=== PATIENT | female | born 1975 | race Two or more races ===

== ENCOUNTER 2023-10-30 09:01 | Emergency (ER) | payer MEDICAID, OTHER ==
[~2023-10-30] VITALS: Ht 165.1 cm; Wt 68.8 kg
[2023-10-30 09:19] VITALS: BP 146/82; TEMP 98.3
[2023-10-30 10:59] VITALS: PULSE 80; RESP 18; O2SAT 100
[2023-10-30] MEDS ORDERED: IBUPROFEN 600 MG TAB PO ONE (11:00)
[2023-10-30] MEDS ORDERED: LIDOCAINE 1% HCL (LOCAL ANESTH.) INJ 20ML MDV ID ONE (11:00)
[2023-10-30] MEDS ORDERED: MUPI2CRE17 EX (13:36)
[2023-10-30] MEDS ORDERED: AUG875T PO (13:36)
[2023-10-30] MEDS ORDERED: NEOMYCIN-BACITRACIN-POLYM UNITDOSE PKG TOP OINT TOP ONE (13:45)
== END 2023-10-30 13:52 | disposition home or self-care (01) ==
LOC: ER 09:01
DX: L03.011 Cellulitis of right finger (principal); Z79.2 Long term (current) use of antibiotics; Z79.899 Other long term (current) drug therapy; Z88.0 Allergy status to penicillin
CPT/HCPCS: 10060; 87205; 99283; J2001; 87077; 87186

== ENCOUNTER 2025-01-01 09:33 | Inpatient (IN) | payer MEDICAID ==
[~2025-01-01] VITALS: Ht 165.1 cm; Wt 69.4 kg
[2025-01-01] VITALS (12 sets, daily range): BP systolic 130–149; BP diastolic 80–105; PULSE 89–110; RESP 11–19; TEMP 98.6–98.9; O2SAT 92–99
[2025-01-01] MEDS: ACCU-CHEK COMFORT CURVE STRIP VI SCH
[2025-01-01] MEDS: InsuLIN REG 1unit/0.01ml Soln (100units/ml) SC SCH
[~2025-01-01 09:33] MED LIST: AUG875T PO; MUPI2CRE17 EX
[2025-01-01 10:49] LABS: Basophils # (auto) 0.1 10 ^3/uL (0-0.2); Basophils % (auto) 0.7 % (0.0-2.0); Eosinophils # (auto) 0.3 10 ^3/uL (0-0.8); Hemoglobin 8.9 g/dL (12.2-16.2); Lymphocytes # (auto) 1.2 10 ^3/uL (0.4-5.4); Mean Corpuscular Hemoglobin 17.1 pg (28.0-32.0); Monocytes # (auto) 0.4 10 ^3/uL (0-1.3)
[2025-01-01 10:54] LABS: Eosinophils % (auto) 3.1 % (0.0-7.0); Hematocrit 30.8 % (36.0-46.0); Lymphocytes % (auto) 13.6 % (10.0-50.0); Mean Corpuscular Volume 58.9 fL (80.0-100.0); Monocytes % (auto) 4.2 % (0.0-12.0); Neutrophils % (auto) 78.4 % (37.0-80.0); Platelet Count (auto) 318 10^3/uL (140-450); Red Blood Cells 5.22 10^6/uL (4.0-5.20)
[2025-01-01 11:15] LABS: Anion Gap 10 (5-15); Carbon Dioxide 22 mmol/L (20-31); Chloride 102 mmol/L (98-107); Potassium 3.7 mmol/L (3.5-5.1)
[2025-01-01 11:16] LABS: Calcium 9.2 mg/dL (8.7-10.4)
[2025-01-01 11:17] LABS: INR 0.92 (0.9-1.15); Prothrombin Time 9.8 sec (9.3-11.8)
[2025-01-01 11:21] LABS: BUN/Creatinine Ratio 8.1 (10.0-20.0)
--- NOTE | 2025-01-01 11:22 | DVH ---
Right lower extremity venous duplex Clinical History: rle calf pain and swelling Comparison: None Findings: Duplex Doppler evaluation of the deep venous system of the right lower extremity from the common femo ral vein to the popliteal vein including color Doppler and spectral/pulsed waveform analysis was perf ormed. The common femoral vein demonstrates appropriate compressibility and waveform variability. There is compressibility/patency of the great saphenous vein at the proximal thigh. Loss of compressibility involving the proximal femoral vein to the popliteal vein which appears compl etely occluded The deep femoral vein demonstrates appropriate compressibility and waveform variability. There is normal compressibility at the tibioperoneal trunk. Impression: Right lower extremity DVT If clinical concern/symptoms persist or worsen, short-interval follow-up study is suggested.
[2025-01-01 11:28] LABS: Blood Urea Nitrogen 6 mg/dL (9-23); Glucose 341 mg/dL (74-106); Sodium 134 mmol/L (136-145)
[2025-01-01] MEDS: ACETAMINOPHEN 325 MG TAB PO ONE (11:59)
--- NOTE | 2025-01-01 12:00 | ED.PDOC ---
History of Present Illness HPI Comments 49F with a history of myasthenia gravis presents with 2 days of right lower extremity swelling, pain, tenderness. She is on oral contraception. She does not take any blood thinners, smoking, or family history of blood thinners. Patient denies chest pain and shortness of breath. Chief Complaint: Lower Extremity Time Seen by MD: 10:04 Primary Care Provider: JENNA Allergies: Coded Allergies: Penicillins (Verified Allergy, Unknown, 10/30/23) Home Meds Active Scripts Amoxicillin & Pot Clavulanate (AUGMENTIN TABLET) 875 Mg Tb, 875 MG PO BID for 10 Days, #20 TAB 0 Refills Prov:SDI OCONNELL PROFESSIONAL [employer] FISHER 10/30/23 Mupirocin Calcium (Topical) (MUPIROCIN) 2 % Cre, 2 % EX DAILY for 7 Days, #5 GRAMS 0 Refills Prov:SID OCONNELL PROFESSIONAL [employer] FISHER 10/30/23 Information Source: Patient Mode of Arrival: Ambulatory Past Medical History Past Medical History (Other): Myasthenia gravis Family History Family History: Reviewed,noncontributory to illness Social History Smoker: Non-Smoker Alcohol: Denies ETOH Use Drugs: Denies Drug Use All Other Systems: Reviewed and Negative Physical Exam General Appearance: Normal HEENT: Normal ENT Inspection Neck: Normal Inspection Respiratory: No Respiratory Distress Cardiovascular: Tachycardia Breast Exam: Normal Gastrointestinal: Non Tender Genitalia: Deferred Pelvic: Deferred Rectal: Deferred Extremities: Other (Right calf is tender and twice the size of the left calf.) Neurologic: No Motor Deficits Cerebellar Function: NOT DONE Reflexes: NOT DONE Skin: Normal Color Lymphatic: NOT DONE Was a procedure done? Was a procedure done?: No Differential Dx Considerations may include: DVT, cellulitis, muscle strain X-Ray, Labs, Meds, VS Vital Signs Date Time Temp Pulse Resp B/P (MAP) Pulse Ox O2 Delivery O2 Flow Rate FiO2 01/01/25 11:10 117 14 98 Room Air 01/01/25 11:05 98.9 117 14 129/86 (100) 98 98.9 01/01/25 10:18 98.3 124 16 131/104 (113) 100 Lab Test 01/01/25 10:25 Range/Units White Blood Count 9.0 4.4-10.8 10^3/uL Red Blood Count 5.22 H 4.0-5.20 10^6/uL Hemoglobin 8.9 L 12.2-16.2 g/dL Hematocrit 30.8 L 36.0-46.0 % Mean Corpuscular Volume 58.9 L 80.0-100.0 fL Mean Corpuscular Hemoglobin 17.1 L 28.0-32.0 pg Mean Corpuscular Hemoglobin Concent 29.0 L 32.0-36.0 g/dL Red Cell Distribution Width 19.0 H 11.8-14.3 % Platelet Count 318 140-450 10^3/uL Mean Platelet Volume 8.3 6.9-10.8 fL Neutrophils (%) (Auto) 78.4 37.0-80.0 % Lymphocytes (%) (Auto) 13.6 10.0-50.0 % Monocytes (%) (Auto) 4.2 0.0-12.0 % Eosinophils (%) (Auto) 3.1 0.0-7.0 % Basophils (%) (Auto) 0.7 0.0-2.0 % Neutrophils # (Auto) 7.0 1.6-8.6 10 ^3/uL Lymphocytes # (Auto) 1.2 0.4-5.4 10 ^3/uL Monocytes # (Auto) 0.4 0-1.3 10 ^3/uL Eosinophils # (Auto) 0.3 0-0.8 10 ^3/uL Basophils # (Auto) 0.1 0-0.2 10 ^3/uL Nucleated Red Blood Cells 0.0 % Platelet Estimate Pending Prothrombin Time 9.8 9.3-11.8 sec Prothrombin Time INR 0.92 0.9-1.15 D-Dimer, Quantitative 1.47 H 0.0-0.49 mg/L FEU Sodium Level 134 L 136-145 mmol/L Potassium Level 3.7 3.5-5.1 mmol/L Chloride Level 102 98-107 mmol/L Carbon Dioxide Level 22 20-31 mmol/L Anion Gap 10 5-15 Blood Urea Nitrogen 6 L 9-23 mg/dL Creatinine 0.74 0.550-1.02 mg/dL Glomerular Filtration Rate Calc 100 >90 mL/min BUN/Creatinine Ratio 8.1 L 10.0-20.0 Serum Glucose 341 H 74-106 mg/dL Calcium Level 9.2 8.7-10.4 mg/dL Time of 1ST Reevaluation: 11:59 Reevaluation 1ST: Unchanged Patient Education/Counseling: Diagnosis, Treatment Family Education/Counseling: No Family Present Departure 1 Departure Time of Disposition: 11:59 (Patient has a DVT concerning for proximal femoral DVT. We will start patient on heparin and admit patient for INari consultation.) Impression: Primary Impression: Right leg DVT Qualified Codes: I82.411 - Acute embolism and thrombosis of right femoral vein Additional Impression: Right calf pain Disposition: ADMITTED INPATIENT Admit to: Med Surg Condition: Serious Critical Care Note Critical Care Time?: No Stability Stability form required: No Heart Score Heart Score: Heart Score Response (Comments) Value History N/A 0 EKG N/A 0 Age N/A 0 Risk Factors N/A 0 Troponin N/A 0 Total 0 EMMANUEL LI MD Jan 01, 2025 12:00
[2025-01-01] MEDS ORDERED: ONDANSETRON HCL 4 MG/2 ML VIAL IV PRN (12:45)
[2025-01-01] MEDS ORDERED: NITROGLYCERIN 0.4 MG SL TAB SL PRN (12:45)
[2025-01-01] MEDS ORDERED: MORPHINE SULFATE INJ 2 MG/ml SYRG IV PRN (12:45)
[2025-01-01 12:56] LABS: Hypochromia Marked
[2025-01-01 12:57] LABS: Platelet Estimate Adequate
[2025-01-01] MEDS ORDERED: DEXTROSE (50%) 50ML SYRG IV PRN (13:00)
--- NOTE | 2025-01-01 13:02 | DVHHP2 ---
History of Present Illness Reason for Visit: Right leg pain and swelling History of Present Illness Maryana Cordova is a 49-year old female with no significant past medical history who came to the hospital for right leg swelling and pain. Patient states the swelling and pain began on Monday. It continued to worsen prompting her to come to the ER. Ultrasound of RLE showed a DVT. IR was consulted and will be taking patient for procedure. Patient does take oral contraceptives. Denies being sedentary, any recent long travel, or sick interaction. Blood sugar was also found to be elevated about 300. Patient denies being diabetic, and states she does routine visits and lab work with her primary care provider, with the last visit about 2 months ago. Will order A1c, and start accu checks. 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) Past Surgical History: None Family History: None Smoke: No ALCOHOL: none Drugs: None Lives: Alone (with 6-year-old son) Domestic Violence: Neg Review of Systems Constitutional: No: Fever, Chills, Sweats, Weakness, Malaise, Other Eyes: No: Pain, Vision change, Conjunctivae inflammation, Eyelid inflammation, Other, Redness ENT: No: Ear pain, Ear discharge, Nose pain, Nose discharge, Nose congestion, Mouth pain, Mouth swelling, Throat pain, Throat swelling, Other Respiratory: No: Cough, Dry, Shortness of breath, SOB with excertion, Wheezing, Hemoptysis, Pleuritic Pain, Sputum, Wheezing, Other Cardiovascular: No: Chest Pain, Palpitations, Orthopnea, Paroxysmal Noc. Dyspnea, Edema, Lt Headedness, Other Gastrointestinal: No: Nausea, Vomiting, Abdominal Pain, Diarrhea, Constipation, Melena, Hematochezia, Other Genitourinary: No Dysuria, No Frequency, No Incontinence, No Hematuria, No Retention, No Other Musculoskeletal: leg pain (right leg pain and swelling); No: other, neck pain, shoulder pain, arm pain, back pain, hand pain, foot pain Skin: No: Rash, Lesions, Jaundice, Bruising, Other Neurological: No: Weakness, Numbness, Incoordination, Change in speech, Confusion, Seizures, Other Allergies: Coded Allergies: Penicillins (Verified Allergy, Unknown, 10/30/23) Medications Current Medications Medications Dose Ordered Sig/Khloe Route Start Time Stop Time Status Last Admin Dose Admin Heparin Sodium/ Dextrose 250 ml @ 11.682 mls/ hr [id number] IV 01/01/25 12:00 UNV Exam Vital Signs Vital Signs Date Time Temp Pulse Resp B/P (MAP) Pulse Ox O2 Delivery O2 Flow Rate FiO2 01/01/25 12:39 110 16 97 Room Air* 0 21 01/01/25 12:37 99.0 143/102 (116) 99.0 General Appearance: Alert, Oriented X3, Cooperative, moderate distress HEENT: Atraumatic, PERRLA Respiratory: Clear to auscultation, Normal air movement Cardiovascular: Regular rate, Normal S1, Normal S2, No murmurs Abdominal: Normal bowel sounds, Soft, No tenderness Extremities: No clubbing, Other (right LE swelling and pain, +1 pedal pulse) Skin: No rashes, No breakdown, No significant lesion Neuro: Normal gait, Normal speech, Strength at 5/5 X4 ext, Normal tone Psych/Mental Status: Mental status NL, Mood NL Labs/Xrays Labs Test 01/01/25 10:25 Range/Units White Blood Count 9.0 4.4-10.8 10^3/uL Red Blood Count 5.22 H 4.0-5.20 10^6/uL Hemoglobin 8.9 L 12.2-16.2 g/dL Hematocrit 30.8 L 36.0-46.0 % Mean Corpuscular Volume 58.9 L 80.0-100.0 fL Mean Corpuscular Hemoglobin 17.1 L 28.0-32.0 pg Mean Corpuscular Hemoglobin Concent 29.0 L 32.0-36.0 g/dL Red Cell Distribution Width 19.0 H 11.8-14.3 % Platelet Count 318 140-450 10^3/uL Mean Platelet Volume 8.3 6.9-10.8 fL Neutrophils (%) (Auto) 78.4 37.0-80.0 % Lymphocytes (%) (Auto) 13.6 10.0-50.0 % Monocytes (%) (Auto) 4.2 0.0-12.0 % Eosinophils (%) (Auto) 3.1 0.0-7.0 % Basophils (%) (Auto) 0.7 0.0-2.0 % Neutrophils # (Auto) 7.0 1.6-8.6 10 ^3/uL Lymphocytes # (Auto) 1.2 0.4-5.4 10 ^3/uL Monocytes # (Auto) 0.4 0-1.3 10 ^3/uL Eosinophils # (Auto) 0.3 0-0.8 10 ^3/uL Basophils # (Auto) 0.1 0-0.2 10 ^3/uL Nucleated Red Blood Cells 0.0 % Prothrombin Time 9.8 9.3-11.8 sec Prothrombin Time INR 0.92 0.9-1.15 D-Dimer, Quantitative 1.47 H 0.0-0.49 mg/L FEU Sodium Level 134 L 136-145 mmol/L Potassium Level 3.7 3.5-5.1 mmol/L Chloride Level 102 98-107 mmol/L Carbon Dioxide Level 22 20-31 mmol/L Anion Gap 10 5-15 Blood Urea Nitrogen 6 L 9-23 mg/dL Creatinine 0.74 0.550-1.02 mg/dL Glomerular Filtration Rate Calc 100 >90 mL/min BUN/Creatinine Ratio 8.1 L 10.0-20.0 Serum Glucose 341 H 74-106 mg/dL Calcium Level 9.2 8.7-10.4 mg/dL Right lower extremity venous duplex Findings: Duplex Doppler evaluation of the deep venous system of the right lower extremity from the common femoral vein to the popliteal vein including color Doppler and spectral/pulsed waveform analysis was performed. The common femoral vein demonstrates appropriate compressibility and waveform variability. There is compressibility/patency of the great saphenous vein at the proximal thigh. Loss of compressibility involving the proximal femoral vein to the popliteal vein which appears completely occluded The deep femoral vein demonstrates appropriate compressibility and waveform variability. There is normal compressibility at the tibioperoneal trunk. Impression: Right lower extremity DVT If clinical concern/symptoms persist or worsen, short-interval follow-up study is suggested. Assessment/Plan Assessment/Plan Assessment: Right leg DVT, Hyperglycemia, Elevated D-dimer, Plan: Admit to Tele, IR consult, Heparin drip, A1c, Accu checks Q AC&HS with sliding scale, Plan discussed with: Patient Date of Service: Jan 01, 2025 Billing Provider: YAEL TORRES Common Visit Codes: [id number] INP/OBS CARE (HIGH) YAEL TORRES Jan 01, 2025 13:02
[2025-01-01] MEDS: SODIUM CHLORIDE 0.9% 1,000 ML IV SCH (13:06)
[2025-01-01] MEDS: fentaNYL CITRATE 100 MCG/2 ML VL ONE ×2 (13:35→15:16)
[2025-01-01] MEDS: LIDOCAINE 2%HCL (LOCAL ANESTH.) INJ 20ML MDV ONE (13:36)
[2025-01-01] MEDS: MIDAZOLAM HCL 2MG/2ML 2ml VIAL (1mg/ml) ONE ×2 (13:36→15:15)
[2025-01-01] MEDS: HEPARIN SODIUM (PORCINE) 5000 UNITS/ML 1ML VIAL ONE (14:25)
[2025-01-01 14:26] LABS: INR 0.91 (0.9-1.15); Partial Thromboplastin Time 25.2 SEC (24.5-34.5); Prothrombin Time 9.7 sec (9.3-11.8)
--- NOTE | 2025-01-01 15:36 | ECG ---
[facility] Test Date: 2025-01-01 Test Time: 10:26:29 Pat Name: MELCHOR DELGADO Department: ER Room: 0212T Gender: F Acquisition Manager: LYLE : 1975 Requested By: EMMANUEL LI Order Number: [id number] Reading MD: Efrem Joshua Measurements Intervals [place] Rate: 116 P: 70 OK: 139 QRS: -25 QRSD: 87 T: 49 QT: 347 QTc: 483 Interpretive Statements Sinus tachycardia Borderline left axis deviation Low voltage, precordial leads Abnormal R-wave progression, early transition Baseline wander in lead(s) I,II,III,aVR,aVL,V3 Electronically Signed On 01-02-2025 9:48:04 PST by Efrem Joshua Please click the below link to view image of tracing.
[2025-01-01] MEDS: HEPARIN DRIP/D5W 100UNITS/ML 250 ML IV SCH (15:47)
[2025-01-01] MEDS: HEPARIN SODIUM (PORCINE) 5000 UNITS/ML 1ML VIAL IV ONE (15:50)
[2025-01-01] MEDS: HEPARIN DRIP/D5W 100UNITS/ML 250 ML IV ONE (15:59)
--- NOTE | 2025-01-01 19:52 | DVH ---
JIMBO PERCU.VENOUS THROMBECTOM HISTORY: DVT THROMBECTOMY with right femoral, popliteal and iliac vein deep venous thrombus. Tense ri ght lower extremity with pain, swelling, difficulty ambulating. PROCEDURE: Informed consent was obtained. The patient was placed on the fluoroscopic table in prone p osition. The right popliteal fossa was prepped with chlorhexidine which was allowed to dry and draped in the usual sterile fashion. Time out was performed. Following administration of 1% local lidocaine , the right lesser saphenous vein was accessed with a micropuncture set under ultrasound guidance, an d an image documenting patency sent to PACS. Contrast injection through the micro sheath confirms felipe ous location. A glide advantage wire was then advanced through the thrombus into the IVC. A 6 Fr vasc ular sheath was then placed. A glide catheter placed over wire into IVC. IVC venogram performed throu gh the catheter. A small amount of blood was aspirated for ACT and 5000 units of heparin was given. T hen an Amplatz wire was placed in the IVC. A 16 Fr Inari sheath was then placed into the popliteal ve in. A Clot Triever mechanical thrombectomy device was used in 3 passes to remove thrombus from the ri ght iliac, femoral, popliteal veins. A completion venogram was performed. The wire, sheath was gavin angela and the venotomy closed with a suture, flow stasis device and manual compression. No immediate c omplication was identified. DAP FLUOROSCOPY TIME: 12 minutes. CONTRAST USED: 50 mL . SEDATION: Dr. Maximo Otero was personally responsible for the administration of moderate sedation during the procedure performed, including the use of an independent trained observer who had no other duties during the procedure. The drugs utilized were IV fentanyl and versed (see nursing log for details). The total time of supervision by the attending physician was approximately 70 minutes. FINDINGS: Multiple intraluminal filling defects in the right popliteal, femoral veins and right iliac vein, which was removed with mechanical thrombectomy using the Inari Clot Treiver device. Completion venogram shows significantly improved patency of the right lower extremity veins. IMPRESSION: Multiple intraluminal filling defects in the right popliteal, femoral veins and right iliac vein, whi ch was removed with mechanical thrombectomy using the Inari Clot Treiver device. Completion venogram shows significantly improved patency of the right lower extremity veins. PLAN: Resume heparin gtt and transition to oral anticoagulation per primary. Right leg straight for 2 hours. Will remove flow stasis device in 24-48 hours.
[2025-01-01] MEDS: MORPHINE SULFATE INJ 2 MG/ml SYRG IV PRN (20:21)
[2025-01-01] MEDS: ACETAMINOPHEN 325 MG TAB PO PRN (22:26)
[2025-01-01 22:30] LABS: INR 0.95 (0.9-1.15); Partial Thromboplastin Time 46.3 SEC (24.5-34.5); Prothrombin Time 10.1 sec (9.3-11.8)
[2025-01-02] VITALS (8 sets, daily range): BP systolic 120–138; BP diastolic 76–84; PULSE 103–124; RESP 16–20; TEMP 97.8–99.8; O2SAT 96–99
[2025-01-02] MEDS: HEPARIN DRIP/D5W 100UNITS/ML 250 ML IV SCH ×3 (00:15→21:30)
[2025-01-02 07:44] LABS: Basophils # (auto) 0.1 10 ^3/uL (0-0.2); Eosinophils # (auto) 0.3 10 ^3/uL (0-0.8); Lymphocytes # (auto) 0.9 10 ^3/uL (0.4-5.4); Monocytes # (auto) 0.4 10 ^3/uL (0-1.3); Neutrophils # (auto) 8.2 10 ^3/uL (1.6-8.6); White Blood Cell 9.9 10^3/uL (4.4-10.8)
[2025-01-02 07:46] LABS: Basophils % (auto) 0.5 % (0.0-2.0); Eosinophils % (auto) 3.4 % (0.0-7.0); Hematocrit 28.9 % (36.0-46.0); Hemoglobin 8.5 g/dL (12.2-16.2); Mean Corpuscular Hemoglobin 17.3 pg (28.0-32.0); Mean Corpuscular Hgb Conc. 29.2 g/dL (32.0-36.0); Mean Corpuscular Volume 59.3 fL (80.0-100.0); Monocytes % (auto) 4.5 % (0.0-12.0); Neutrophils % (auto) 82.6 % (37.0-80.0); Nucleated Red Blood Cells % 0.1 %; Platelet Count (auto) 285 10^3/uL (140-450); Red Blood Cells 4.87 10^6/uL (4.0-5.20); Red Cell Distribution Width 19.7 % (11.8-14.3)
[2025-01-02 08:00] LABS: INR 0.95 (0.9-1.15); Prothrombin Time 10.1 sec (9.3-11.8)
[2025-01-02 08:01] LABS: Albumin 4.2 g/dL (3.2-4.8); Anion Gap 10 (5-15); BUN/Creatinine Ratio 11.8 (10.0-20.0); Bilirubin, Total 0.4 mg/dL (0.2-1.0); Calcium 8.9 mg/dL (8.7-10.4); Carbon Dioxide 22 mmol/L (20-31); Chloride 104 mmol/L (98-107); Total Protein 6.5 g/dL (5.7-8.2)
[2025-01-02 08:02] LABS: Alanine Aminotransferase < 9 U/L (7-40); Alkaline Phosphatase 117 U/L (46-116); Aspartate Aminotransferase 11 U/L (13-40); Blood Urea Nitrogen 6 mg/dL (9-23); Glucose 165 mg/dL (74-106); Potassium 3.4 mmol/L (3.5-5.1); Sodium 136 mmol/L (136-145)
[2025-01-02] MEDS: HYDROcodone-ACET 5/325MG TAB PO PRN (08:26)
--- NOTE | 2025-01-02 14:06 | DVHPN2 ---
Reviewed: Care Plan, H&P, Labs, Medications, Previous Orders, Radiology Changes from previous H/P or p: No Changes Eyes: No Pain, No Vision change, No Conjunctivae inflammation, No Eyelid inflammation, No Other, No Redness ENT: No Ear pain, No Ear discharge, No Nose pain, No Nose discharge, No Nose congestion, No Mouth pain, No Mouth swelling, No Throat pain, No Throat swelling, No Other Cardiovascular: No Chest Pain, No Palpitations, No Orthopnea, No Paroxysmal Noc. Dyspnea, No Edema, No Lt Headedness, No Other Respiratory: No Cough, No Dry, No Shortness of breath, No SOB with excertion, No Wheezing, No Hemoptysis, No Pleuritic Pain, No Sputum, No Other Gastrointestinal: No Nausea, No Vomiting, No Abdominal Pain, No Diarrhea, No Constipation, No Melena, No Hematochezia, No Other Genitourinary: No Dysuria, No Frequency, No Incontinence, No Hematuria, No Retention, No Other Musculoskeletal: No other, No neck pain, No shoulder pain, No arm pain, No back pain, No hand pain; leg pain (right leg pain and swelling); No foot pain Skin: No Rash, No Lesions, No Jaundice, No Bruising, No Other Objective Vitals Vital Signs Date Time Temp Pulse Resp B/P (MAP) Pulse Ox O2 Delivery O2 Flow Rate FiO2 01/02/25 12:35 109 18 135/79 01/02/25 09:00 99.7 97 99.7 01/02/25 08:00 Room Air* 0 21 Intake/Output Intake and Output 01/02/25 07:00 Intake Total 934.6 ml Output Total 350 ml Balance 584.6 ml Intake Oral 800 ml IV Total 134.6 ml Output Urine Total 350 ml Medications Current Medications Medications Dose Ordered Sig/Khloe Route Start Time Stop Time Status Last Admin Dose Admin Sodium Chloride 1,000 ml @ 60 mls/hr [id number] IV 01/01/25 12:45 01/02/25 06:15 60 MLS/HR Acetaminophen/ Hydrocodone Bitart 1 tab Q4HP PRN PO 01/01/25 12:45 01/02/25 08:26 1 TAB Ondansetron HCl 4 mg Q4HP PRN IV 01/01/25 12:45 Docusate Sodium 100 mg BIDPRN PRN PO 01/01/25 12:45 Acetaminophen 650 mg Q6HP PRN PO 01/01/25 12:45 01/01/25 22:26 650 MG Morphine Sulfate 2 mg Q4HPRN PRN IV 01/01/25 12:45 01/02/25 12:35 2 MG Nitroglycerin 0.4 mg Q5MINP PRN SL 01/01/25 12:45 Morphine Sulfate 2 mg Q30M PRN IV 01/01/25 12:45 Diagnostic Test (Pha) 1 strip Q6HR 01/01/25 18:00 01/02/25 12:11 1 STRIP Insulin Human Regular Q6HR SC 01/01/25 18:00 01/02/25 12:11 4 UNITS Dextrose 50 ml UD PRN IV 01/01/25 13:00 Heparin Sodium/ Dextrose 250 ml @ 16 mls/hr [id number] IV 01/02/25 08:45 01/02/25 08:44 16 MLS/HR Laboratory Results Laboratory Tests 01/02/25 07:22 Chemistry Test 01/02/25 07:22 Albumin 4.2 g/dL (3.2-4.8) Calcium Level 8.9 mg/dL (8.7-10.4) Total Protein 6.5 g/dL (5.7-8.2) Coagulation Test 01/01/25 21:54 01/02/25 07:22 Prothrombin Time 10.1 sec (9.3-11.8) 10.1 sec (9.3-11.8) Prothrombin Time INR 0.95 (0.9-1.15) 0.95 (0.9-1.15) Activated Partial Thromboplast Time 46.3 SEC (24.5-34.5) H 47.0 SEC (24.5-34.5) H LFT Test 01/02/25 07:22 Alanine Aminotransferase (ALT) < 9 U/L (7-40) Alkaline Phosphatase 117 U/L (46-116) H Aspartate Amino Transferase (AST) 11 U/L (13-40) L Total Bilirubin 0.4 mg/dL (0.2-1.0) HgA1c, TSH Test 01/02/25 07:22 Hemoglobin A1c 10.6 % A1C (<5.7) H Labs and/or images reviewed: Labs reviewed by me, Image(s) reviewed by me Assessment/Plan Assessment/Plan Extensive DVT right lower extremity status post thrombectomy by radiologist Dr. Otero, continue heparin drip Right lower leg pain Uncontrolled diabetes A1c 10.6: Insulin sliding scale: New onset diabetes teaching Plan discussed with: Patient Date of Service: Jan 02, 2025 Billing Provider: PRASAD WAY MD Common Visit Codes: [id number] INP/OBS CARE(HIGH) PRASAD WAY MD Jan 02, 2025 14:06
[2025-01-02 15:07] LABS: INR 0.97 (0.9-1.15); Prothrombin Time 10.3 sec (9.3-11.8)
[2025-01-02 15:14] LABS: Partial Thromboplastin Time 74.9 SEC (24.5-34.5)
[2025-01-02 20:58] LABS: INR 0.99 (0.9-1.15); Prothrombin Time 10.5 sec (9.3-11.8)
[2025-01-03] VITALS (8 sets, daily range): BP systolic 116–126; BP diastolic 69–87; PULSE 102–114; RESP 12–22; TEMP 97.7–98.6; O2SAT 96–99
[2025-01-03 06:59] LABS: Anion Gap 11 (5-15); Calcium 9.3 mg/dL (8.7-10.4); Carbon Dioxide 23 mmol/L (20-31); Chloride 100 mmol/L (98-107)
[2025-01-03 07:02] LABS: INR 0.96 (0.9-1.15); Partial Thromboplastin Time 47.7 SEC (24.5-34.5); Potassium 3.2 mmol/L (3.5-5.1); Prothrombin Time 10.2 sec (9.3-11.8); Sodium 134 mmol/L (136-145)
[2025-01-03 07:05] LABS: BUN/Creatinine Ratio 10.9 (10.0-20.0)
[2025-01-03 07:06] LABS: Blood Urea Nitrogen 7 mg/dL (9-23); Glucose 199 mg/dL (74-106)
[2025-01-03] MEDS: HEPARIN DRIP/D5W 100UNITS/ML 250 ML IV SCH (08:20)
--- NOTE | 2025-01-03 08:39 | DVHPN2 ---
Reviewed: Care Plan, H&P, Labs, Medications, Previous Orders, Radiology Changes from previous H/P or p: No Changes Eyes: No Pain, No Vision change, No Conjunctivae inflammation, No Eyelid inflammation, No Other, No Redness ENT: No Ear pain, No Ear discharge, No Nose pain, No Nose discharge, No Nose congestion, No Mouth pain, No Mouth swelling, No Throat pain, No Throat swelling, No Other Cardiovascular: No Chest Pain, No Palpitations, No Orthopnea, No Paroxysmal Noc. Dyspnea, No Edema, No Lt Headedness, No Other Respiratory: No Cough, No Dry, No Shortness of breath, No SOB with excertion, No Wheezing, No Hemoptysis, No Pleuritic Pain, No Sputum, No Other Gastrointestinal: No Nausea, No Vomiting, No Abdominal Pain, No Diarrhea, No Constipation, No Melena, No Hematochezia, No Other Genitourinary: No Dysuria, No Frequency, No Incontinence, No Hematuria, No Retention, No Other Musculoskeletal: No other, No neck pain, No shoulder pain, No arm pain, No back pain, No hand pain; leg pain (right leg pain and swelling); No foot pain Skin: No Rash, No Lesions, No Jaundice, No Bruising, No Other Objective Vitals Vital Signs Date Time Temp Pulse Resp B/P (MAP) Pulse Ox O2 Delivery O2 Flow Rate FiO2 01/03/25 05:53 100 18 117/73 01/03/25 05:00 98.3 98 98.3 01/02/25 20:00 Room Air* 0 21 Intake/Output Intake and Output 01/03/25 07:00 Intake Total 1900 ml Balance 1900 ml Intake Oral 1900 ml # Voids 12 Medications Current Medications Medications Dose Ordered Sig/Khloe Route Start Time Stop Time Status Last Admin Dose Admin Sodium Chloride 1,000 ml @ 60 mls/hr [id number] IV 01/01/25 12:45 01/02/25 23:59 60 MLS/HR Acetaminophen/ Hydrocodone Bitart 1 tab Q4HP PRN PO 01/01/25 12:45 01/02/25 20:17 1 TAB Ondansetron HCl 4 mg Q4HP PRN IV 01/01/25 12:45 Docusate Sodium 100 mg BIDPRN PRN PO 01/01/25 12:45 Acetaminophen 650 mg Q6HP PRN PO 01/01/25 12:45 01/01/25 22:26 650 MG Morphine Sulfate 2 mg Q4HPRN PRN IV 01/01/25 12:45 01/03/25 05:23 2 MG Nitroglycerin 0.4 mg Q5MINP PRN SL 01/01/25 12:45 Morphine Sulfate 2 mg Q30M PRN IV 01/01/25 12:45 Diagnostic Test (Pha) 1 strip Q6HR 01/01/25 18:00 01/03/25 06:00 1 STRIP Insulin Human Regular Q6HR SC 01/01/25 18:00 01/03/25 07:06 4 UNITS Dextrose 50 ml UD PRN IV 01/01/25 13:00 Heparin Sodium/ Dextrose 250 ml @ 15 mls/hr [id number] IV 01/03/25 08:30 01/03/25 08:20 15 MLS/HR Laboratory Results Laboratory Tests 01/02/25 07:22 01/03/25 05:18 Chemistry Test 01/03/25 05:18 Calcium Level 9.3 mg/dL (8.7-10.4) Coagulation Test 01/02/25 14:34 01/02/25 20:15 01/03/25 05:18 Prothrombin Time 10.3 sec (9.3-11.8) 10.5 sec (9.3-11.8) 10.2 sec (9.3-11.8) Prothrombin Time INR 0.97 (0.9-1.15) 0.99 (0.9-1.15) 0.96 (0.9-1.15) Activated Partial Thromboplast Time 74.9 SEC (24.5-34.5) *H 93.0 SEC (24.5-34.5) *H 47.7 SEC (24.5-34.5) H Labs and/or images reviewed: Labs reviewed by me, Image(s) reviewed by me Assessment/Plan Assessment/Plan Extensive DVT right lower extremity status post thrombectomy by radiologist Dr. Otero, continue heparin drip Right lower leg pain Uncontrolled diabetes A1c 10.6: Insulin sliding scale: New onset diabetes teaching Plan discussed with: Patient My Orders Orders - PRASAD WAY MD Procedure Category Date Status Time * Cardiology Consult CONS 2/6/25 Transmitted 14:08 Date of Service: Jan 03, 2025 Billing Provider: PRASAD WAY MD Common Visit Codes: [id number] INP/OBS CARE(HIGH) PRASAD WAY MD Jan 03, 2025 08:39
--- NOTE | 2025-01-03 10:12 | DVH ---
LEFT LOWER EXTREMITY VENOUS DOPPLER CLINICAL HISTORY: R/O DVT TECHNIQUE: Lower extremity venous Doppler study was performed. COMPARISON: US RT LOWER DVT on DOS: 01/01/25 FINDINGS: The left common femoral, superficial femoral, popliteal, posterior tibial veins and trifurcation appe ar patent with normal augmentation, compressibility and color-flow. . IMPRESSION: 1. No sonographic evidence of DVT in the left leg. HS:Y
[2025-01-03 16:26] LABS: INR 0.97 (0.9-1.15); Prothrombin Time 10.3 sec (9.3-11.8)
[2025-01-03 16:35] LABS: Partial Thromboplastin Time 75.5 SEC (24.5-34.5)
[2025-01-03] MEDS: DOCUSATE SOD 100 MG CAP PO PRN (21:10)
[2025-01-03 23:09] LABS: Prothrombin Time 10.3 sec (9.3-11.8)
[2025-01-03 23:10] LABS: INR 0.97 (0.9-1.15); Partial Thromboplastin Time 68.9 SEC (24.5-34.5)
[2025-01-04] VITALS (11 sets, daily range): BP systolic 95–132; BP diastolic 56–84; PULSE 98–127; RESP 14–20; TEMP 97.5–98.9; O2SAT 96–99
[2025-01-04 03:48] LABS: INR 0.97 (0.9-1.15); Prothrombin Time 10.3 sec (9.3-11.8)
[2025-01-04 03:53] LABS: Partial Thromboplastin Time 83.8 SEC (24.5-34.5)
[2025-01-04] MEDS: HEPARIN DRIP/D5W 100UNITS/ML 250 ML IV SCH (04:15)
--- NOTE | 2025-01-04 08:50 | DVHPN2 ---
Reviewed: Care Plan, H&P, Labs, Medications, Previous Orders, Radiology Changes from previous H/P or p: No Changes Eyes: No Pain, No Vision change, No Conjunctivae inflammation, No Eyelid inflammation, No Other, No Redness ENT: No Ear pain, No Ear discharge, No Nose pain, No Nose discharge, No Nose congestion, No Mouth pain, No Mouth swelling, No Throat pain, No Throat swelling, No Other Cardiovascular: No Chest Pain, No Palpitations, No Orthopnea, No Paroxysmal Noc. Dyspnea, No Edema, No Lt Headedness, No Other Respiratory: No Cough, No Dry, No Shortness of breath, No SOB with excertion, No Wheezing, No Hemoptysis, No Pleuritic Pain, No Sputum, No Other Gastrointestinal: No Nausea, No Vomiting, No Abdominal Pain, No Diarrhea, No Constipation, No Melena, No Hematochezia, No Other Genitourinary: No Dysuria, No Frequency, No Incontinence, No Hematuria, No Retention, No Other Musculoskeletal: No other, No neck pain, No shoulder pain, No arm pain, No back pain, No hand pain; leg pain (right leg pain and swelling); No foot pain Skin: No Rash, No Lesions, No Jaundice, No Bruising, No Other Objective Vitals Vital Signs Date Time Temp Pulse Resp B/P (MAP) Pulse Ox O2 Delivery O2 Flow Rate FiO2 01/04/25 05:00 97.7 98 20 107/75 (86) 98 97.7 01/03/25 20:00 Room Air* 0 21 Intake/Output Intake and Output 01/04/25 07:00 Intake Total 1490 ml Output Total 200 ml Balance 1290 ml Intake Oral 1240 ml IV Total 250 ml Output Urine Total 200 ml # Voids 7 Medications Current Medications Medications Dose Ordered Sig/Khloe Route Start Time Stop Time Status Last Admin Dose Admin Sodium Chloride 1,000 ml @ 60 mls/hr [id number] IV 01/01/25 12:45 01/04/25 06:52 60 MLS/HR Acetaminophen/ Hydrocodone Bitart 1 tab Q4HP PRN PO 01/01/25 12:45 01/03/25 20:56 1 TAB Ondansetron HCl 4 mg Q4HP PRN IV 01/01/25 12:45 Docusate Sodium 100 mg BIDPRN PRN PO 01/01/25 12:45 01/03/25 21:10 100 MG Acetaminophen 650 mg Q6HP PRN PO 01/01/25 12:45 01/01/25 22:26 650 MG Morphine Sulfate 2 mg Q4HPRN PRN IV 01/01/25 12:45 01/03/25 05:23 2 MG Nitroglycerin 0.4 mg Q5MINP PRN SL 01/01/25 12:45 Morphine Sulfate 2 mg Q30M PRN IV 01/01/25 12:45 Diagnostic Test (Pha) 1 strip Q6HR 01/01/25 18:00 01/04/25 06:00 1 STRIP Insulin Human Regular Q6HR SC 01/01/25 18:00 01/04/25 06:52 3 UNITS Dextrose 50 ml UD PRN IV 01/01/25 13:00 Heparin Sodium/ Dextrose 250 ml @ 13 mls/hr [id number] IV 01/04/25 04:15 Laboratory Results Laboratory Tests 01/02/25 07:22 01/03/25 05:18 Coagulation Test 01/03/25 15:08 01/03/25 21:17 01/04/25 03:02 Prothrombin Time 10.3 sec (9.3-11.8) 10.3 sec (9.3-11.8) 10.3 sec (9.3-11.8) Prothrombin Time INR 0.97 (0.9-1.15) 0.97 (0.9-1.15) 0.97 (0.9-1.15) Activated Partial Thromboplast Time 75.5 SEC (24.5-34.5) *H 68.9 SEC (24.5-34.5) H 83.8 SEC (24.5-34.5) *H Labs and/or images reviewed: Labs reviewed by me, Image(s) reviewed by me Assessment/Plan Assessment/Plan Extensive DVT right lower extremity status post thrombectomy by radiologist Dr. Otero, continue heparin drip Right lower leg pain Uncontrolled diabetes A1c 10.6: Insulin sliding scale: New onset diabetes teaching Patient is still complaining of pain in the right lower extremity; we will continue heparin drip DVT ruled out in the left lower extremity Plan discussed with: Patient My Orders Orders - PRASAD WAY MD Procedure Category Date Status Time Lt Lower Dvt US 01/03/25 Resulted 09:21 Date of Service: Jan 04, 2025 Billing Provider: PRASAD WAY MD Common Visit Codes: [id number] INP/OBS CARE(HIGH) PRASAD WAY MD Jan 04, 2025 08:50
[2025-01-04 11:05] LABS: Basophils # (auto) 0.1 10 ^3/uL (0-0.2); Basophils % (auto) 0.7 % (0.0-2.0); Eosinophils # (auto) 0.3 10 ^3/uL (0-0.8); Eosinophils % (auto) 4.1 % (0.0-7.0); Hematocrit 23.5 % (36.0-46.0); Lymphocytes # (auto) 1.2 10 ^3/uL (0.4-5.4); Lymphocytes % (auto) 15.7 % (10.0-50.0); Mean Corpuscular Hemoglobin 17.3 pg (28.0-32.0); Mean Corpuscular Hgb Conc. 29.2 g/dL (32.0-36.0); Mean Corpuscular Volume 59.1 fL (80.0-100.0); Monocytes # (auto) 0.4 10 ^3/uL (0-1.3); Monocytes % (auto) 4.9 % (0.0-12.0); Neutrophils # (auto) 5.8 10 ^3/uL (1.6-8.6); Neutrophils % (auto) 74.6 % (37.0-80.0); Platelet Count (auto) 298 10^3/uL (140-450); Red Blood Cells 3.97 10^6/uL (4.0-5.20); Red Cell Distribution Width 19.4 % (11.8-14.3); White Blood Cell 7.8 10^3/uL (4.4-10.8)
[2025-01-04 11:11] LABS: Hemoglobin 6.9 g/dL (12.2-16.2)
[2025-01-04 11:20] LABS: INR 0.95 (0.9-1.15); Partial Thromboplastin Time 59.4 SEC (24.5-34.5); Prothrombin Time 10.1 sec (9.3-11.8)
--- NOTE | 2025-01-04 13:17 | DVH ---
EXAM: US Pelvis Transabdominal, Complete CLINICAL INDICATION: Menorrhagia TECHNIQUE: Real-time complete transabdominal pelvic ultrasound with image documentation. COMPARISON: None FINDINGS: UTERUS/CERVIX: Portable uterine fibroid measuring up to 1.8 by 2.1 x 1.9 cm. The uterus measures 1 2.2 x 6.8 x 8.5 cm. The endometrial stripe measures 0.56 cm in thickness. RIGHT OVARY: Unremarkable. No mass. Normal blood flow. LEFT OVARY: Unremarkable. No mass. Normal blood flow. FREE FLUID: No free fluid. BLADDER: Unremarkable as visualized. Wall is normal thickness for degree of distention. OTHER FINDINGS: . . . . .. IMPRESSION: Portable uterine fibroid measuring up to 1.8 by 2.1 x 1.9 cm.
[2025-01-04] MEDS: ACCU-CHEK COMFORT CURVE STRIP VI SCH (17:02)
[2025-01-04] MEDS: InsuLIN REG 1unit/0.01ml Soln (100units/ml) SC SCH (17:06)
[2025-01-04 23:03] LABS: INR 0.94 (0.9-1.15); Partial Thromboplastin Time 54.7 SEC (24.5-34.5)
[2025-01-05] VITALS (8 sets, daily range): BP systolic 101–141; BP diastolic 57–84; PULSE 84–104; RESP 14–19; TEMP 97.9–98.4; O2SAT 96–98
[2025-01-05 06:24] LABS: INR 0.95 (0.9-1.15); Partial Thromboplastin Time 66.2 SEC (24.5-34.5); Prothrombin Time 10.1 sec (9.3-11.8)
--- NOTE | 2025-01-05 09:56 | DVHPN2 ---
Reviewed: Care Plan, H&P, Labs, Medications, Previous Orders, Radiology Changes from previous H/P or p: No Changes Eyes: No Pain, No Vision change, No Conjunctivae inflammation, No Eyelid inflammation, No Other, No Redness ENT: No Ear pain, No Ear discharge, No Nose pain, No Nose discharge, No Nose congestion, No Mouth pain, No Mouth swelling, No Throat pain, No Throat swelling, No Other Cardiovascular: No Chest Pain, No Palpitations, No Orthopnea, No Paroxysmal Noc. Dyspnea, No Edema, No Lt Headedness, No Other Respiratory: No Cough, No Dry, No Shortness of breath, No SOB with excertion, No Wheezing, No Hemoptysis, No Pleuritic Pain, No Sputum, No Other Gastrointestinal: No Nausea, No Vomiting, No Abdominal Pain, No Diarrhea, No Constipation, No Melena, No Hematochezia, No Other Genitourinary: No Dysuria, No Frequency, No Incontinence, No Hematuria, No Retention, No Other Musculoskeletal: No other, No neck pain, No shoulder pain, No arm pain, No back pain, No hand pain; leg pain (right leg pain and swelling); No foot pain Skin: No Rash, No Lesions, No Jaundice, No Bruising, No Other Objective Vitals Vital Signs Date Time Temp Pulse Resp B/P (MAP) Pulse Ox O2 Delivery O2 Flow Rate FiO2 01/05/25 09:00 98.0 90 16 101/57 (72) 98 98.0 01/04/25 20:00 Room Air* 0 21 Intake/Output Intake and Output 01/05/25 07:00 Intake Total 1941 ml Balance 1941 ml Intake Oral 1550 ml IV Total 91 ml Blood Product 300 ml # Voids 7 # Bowel Movements 3 Medications Current Medications Medications Dose Ordered Sig/Khloe Route Start Time Stop Time Status Last Admin Dose Admin Sodium Chloride 1,000 ml @ 60 mls/hr [id number] IV 01/01/25 12:45 01/04/25 06:52 60 MLS/HR Acetaminophen/ Hydrocodone Bitart 1 tab Q4HP PRN PO 01/01/25 12:45 01/05/25 06:22 1 TAB Ondansetron HCl 4 mg Q4HP PRN IV 01/01/25 12:45 Docusate Sodium 100 mg BIDPRN PRN PO 01/01/25 12:45 2/25 21:10 100 MG Acetaminophen 650 mg Q6HP PRN PO 01/01/25 12:45 01/01/25 22:26 650 MG Morphine Sulfate 2 mg Q4HPRN PRN IV 01/01/25 12:45 01/03/25 05:23 2 MG Nitroglycerin 0.4 mg Q5MINP PRN SL 01/01/25 12:45 Morphine Sulfate 2 mg Q30M PRN IV 01/01/25 12:45 Dextrose 50 ml UD PRN IV 01/01/25 13:00 Heparin Sodium/ Dextrose 250 ml @ 13 mls/hr [id number] IV 01/04/25 04:15 01/04/25 23:29 13 MLS/HR Diagnostic Test (Pha) 1 strip ACHS 01/04/25 17:00 01/05/25 06:28 1 STRIP Insulin Human Regular ACHS SC 01/04/25 17:00 01/05/25 06:27 4 UNITS Laboratory Results Laboratory Tests 01/03/25 05:18 01/04/25 10:56 Coagulation Test 01/04/25 10:56 01/04/25 22:00 01/05/25 05:19 Prothrombin Time 10.1 sec (9.3-11.8) 10.0 sec (9.3-11.8) 10.1 sec (9.3-11.8) Prothrombin Time INR 0.95 (0.9-1.15) 0.94 (0.9-1.15) 0.95 (0.9-1.15) Activated Partial Thromboplast Time 59.4 SEC (24.5-34.5) H 54.7 SEC (24.5-34.5) H 66.2 SEC (24.5-34.5) H Labs and/or images reviewed: Labs reviewed by me, Image(s) reviewed by me Assessment/Plan Assessment/Plan Extensive DVT right lower extremity status post thrombectomy by radiologist Dr. Otero, continue heparin drip Right lower leg pain Uncontrolled diabetes A1c 10.6: Insulin sliding scale: New onset diabetes teaching Patient is still complaining of pain in the right lower extremity; we will continue heparin drip DVT ruled out in the left lower extremity Radiology Dr. Otero spoke to me and advised the patient should walk to the restroom Left calf tenderness and pain: CT left tib-fib Plan discussed with: Patient My Orders Orders - PRASAD WAY MD Procedure Category Date Status Time Pelvic US 01/04/25 Resulted 11:43 Obtain Consent For: ORDERS 01/04/25 Transmitted 11:56 Pulse Ox Cont Per Day RT 01/04/25 Logged 11:56 Vital Signs ELE 01/04/25 In Process 11:56 Obtain Consent For ELE 01/04/25 In Process Anesthesia 11:56 Glucose Blood PHA 01/04/25 In Process (Accu-Chek Comfort 17:00 Insulin R (Human) PHA 01/04/25 In Process (Insulin R) 17:00 Pt Request For Service PT 01/05/25 Verified 09:52 Date of Service: Jan 05, 2025 Billing Provider: PRASAD WAY MD Common Visit Codes: [id number] INP/OBS CARE(HIGH) PRASAD WAY MD Jan 05, 2025 09:56
[2025-01-05 11:29] LABS: INR 0.97 (0.9-1.15); Prothrombin Time 10.3 sec (9.3-11.8)
[2025-01-05 11:34] LABS: Partial Thromboplastin Time 75.4 SEC (24.5-34.5)
--- NOTE | 2025-01-05 12:29 | DVH ---
CLINICAL INDICATION: 49 years old, Female; Pain and swelling left calf muscle. TECHNIQUE: Noncontrast CT of the left tibia/ fibula was performed. Sagittal and coronal reformatted i mages are provided. COMPARISON: None CT Dose: CTDI volume is 7.75 mGy. Dose-length product is 402.4 mGy*cm FINDINGS: No fracture or dislocation. No periosteal reaction or cortical destruction. Joint spaces are maintain ed. Soft tissue swelling in the anterior medial knee and anterior tibial subcutaneous soft tissues. The fat planes between the calf muscles are maintained. No fluid collection. IMPRESSION: 1. No fracture or dislocation. No cortical destruction. 2. Soft tissue swelling in the subcutaneous soft tissues. No findings to suggest intramuscular edema. All CT scans at this medical facility are performed using dose modulation techniques as appropriate t o a performed exam including the following: Automated exposure control was utilized; adjustment of th e MA and/or KV according to patient size; and use of iterative reconstruction technique.
[2025-01-05 17:59] LABS: INR 0.92 (0.9-1.15); Partial Thromboplastin Time 47.5 SEC (24.5-34.5); Prothrombin Time 9.8 sec (9.3-11.8)
[2025-01-05] MEDS: HEPARIN DRIP/D5W 100UNITS/ML 250 ML IV SCH (18:31)
[2025-01-06 01:51] LABS: INR 0.95 (0.9-1.15); Prothrombin Time 10.1 sec (9.3-11.8)
[2025-01-06 02:06] LABS: Partial Thromboplastin Time 85.9 SEC (24.5-34.5)
[2025-01-06] MEDS: HEPARIN DRIP/D5W 100UNITS/ML 250 ML IV SCH (03:32)
[2025-01-06 05:00] VITALS: BP 127/75; PULSE 91; RESP 16; TEMP 97.9; O2SAT 94
[2025-01-06 07:17] LABS: Chloride 106 mmol/L (98-107); Potassium 3.5 mmol/L (3.5-5.1); Sodium 139 mmol/L (136-145)
[2025-01-06 07:18] LABS: Anion Gap 8 (5-15); Carbon Dioxide 25 mmol/L (20-31)
[2025-01-06 07:23] LABS: BUN/Creatinine Ratio 10.2 (10.0-20.0); Blood Urea Nitrogen 5 mg/dL (9-23); Glucose 179 mg/dL (74-106)
[2025-01-06 09:00] VITALS: BP 112/74; PULSE 93; RESP 19; TEMP 97.7; O2SAT 98
[2025-01-06 09:47] LABS: INR 0.97 (0.9-1.15); Prothrombin Time 10.3 sec (9.3-11.8)
[2025-01-06] MEDS ORDERED: APIX5TAB PO (10:20)
--- NOTE | 2025-01-06 10:24 | DVHPN2 ---
Reviewed: Care Plan, H&P, Labs, Medications, Previous Orders, Radiology Changes from previous H/P or p: No Changes Eyes: No Pain, No Vision change, No Conjunctivae inflammation, No Eyelid inflammation, No Other, No Redness ENT: No Ear pain, No Ear discharge, No Nose pain, No Nose discharge, No Nose congestion, No Mouth pain, No Mouth swelling, No Throat pain, No Throat swelling, No Other Cardiovascular: No Chest Pain, No Palpitations, No Orthopnea, No Paroxysmal Noc. Dyspnea, No Edema, No Lt Headedness, No Other Respiratory: No Cough, No Dry, No Shortness of breath, No SOB with excertion, No Wheezing, No Hemoptysis, No Pleuritic Pain, No Sputum, No Other Gastrointestinal: No Nausea, No Vomiting, No Abdominal Pain, No Diarrhea, No Constipation, No Melena, No Hematochezia, No Other Genitourinary: No Dysuria, No Frequency, No Incontinence, No Hematuria, No Retention, No Other Musculoskeletal: No other, No neck pain, No shoulder pain, No arm pain, No back pain, No hand pain; leg pain (right leg pain and swelling); No foot pain Skin: No Rash, No Lesions, No Jaundice, No Bruising, No Other Objective Vitals Vital Signs Date Time Temp Pulse Resp B/P (MAP) Pulse Ox O2 Delivery O2 Flow Rate FiO2 01/06/25 09:00 97.7 93 19 112/74 (87) 98 97.7 01/05/25 20:00 Room Air* 0 21 Intake/Output Intake and Output 01/06/25 07:00 Intake Total 2875 ml Balance 2875 ml Intake Oral 1800 ml IV Total 1075 ml # Voids 11 Medications Current Medications Medications Dose Ordered Sig/Khloe Route Start Time Stop Time Status Last Admin Dose Admin Sodium Chloride 1,000 ml @ 60 mls/hr [id number] IV 01/01/25 12:45 01/06/25 08:52 60 MLS/HR Acetaminophen/ Hydrocodone Bitart 1 tab Q4HP PRN PO 01/01/25 12:45 01/06/25 06:14 1 TAB Ondansetron HCl 4 mg Q4HP PRN IV 01/01/25 12:45 Docusate Sodium 100 mg BIDPRN PRN PO 01/01/25 12:45 01/03/25 21:10 100 MG Acetaminophen 650 mg Q6HP PRN PO 01/01/25 12:45 01/01/25 22:26 650 MG Morphine Sulfate 2 mg Q4HPRN PRN IV 01/01/25 12:45 01/03/25 05:23 2 MG Nitroglycerin 0.4 mg Q5MINP PRN SL 01/01/25 12:45 Morphine Sulfate 2 mg Q30M PRN IV 01/01/25 12:45 Dextrose 50 ml UD PRN IV 01/01/25 13:00 Diagnostic Test (Pha) 1 strip ACHS 01/04/25 17:00 01/06/25 07:05 1 STRIP Insulin Human Regular ACHS SC 01/04/25 17:00 01/06/25 06:14 3 UNITS Heparin Sodium/ Dextrose 250 ml @ 13 mls/hr [id number] IV 01/06/25 02:15 Laboratory Results Laboratory Tests 01/04/25 10:56 01/06/25 05:30 Chemistry Test 01/06/25 05:30 Calcium Level 9.0 mg/dL (8.7-10.4) Coagulation Test 01/05/25 10:44 01/05/25 17:10 01/06/25 00:52 01/06/25 08:46 Prothrombin Time 10.3 sec (9.3-11.8) 9.8 sec (9.3-11.8) 10.1 sec (9.3-11.8) 10.3 sec (9.3-11.8) Prothrombin Time INR 0.97 (0.9-1.15) 0.92 (0.9-1.15) 0.95 (0.9-1.15) 0.97 (0.9-1.15) Activated Partial Thromboplast Time 75.4 SEC (24.5-34.5) *H 47.5 SEC (24.5-34.5) H 85.9 SEC (24.5-34.5) *H 79.0 SEC (24.5-34.5) *H Labs and/or images reviewed: Labs reviewed by me, Image(s) reviewed by me Assessment/Plan Assessment/Plan Extensive DVT right lower extremity status post thrombectomy by radiologist Dr. Otero, treated with a heparin drip, we will transition to Eliquis Right lower leg pain Uncontrolled diabetes A1c 10.6: Insulin sliding scale: New onset diabetes teaching Patient is still complaining of pain in the right lower extremity; we will continue heparin drip DVT ruled out in the left lower extremity Left calf tenderness and pain: CT left tib-fib due for any fracture dislocation for any acute pathology Plan discussed with: Patient Date of Service: Jan 06, 2025 Billing Provider: PRASAD WAY MD Common Visit Codes: [id number] INP/OBS CARE(HIGH) PRASAD WAY MD Jan 06, 2025 10:24
[2025-01-06] MEDS ORDERED: METF-372 PO (10:29)
--- NOTE | 2025-01-06 10:29 | DVHDS2 ---
Discharge Summary Date of Admission Jan 01, 2025 at 12:38 Date of Discharge: Jan 06, 2025 Admitting Diagnosis Right leg tenderness and pain Wounds: None Labs/Diagnostic Data: Laboratory Results Test 01/06/25 08:46 01/06/25 05:44 01/06/25 05:30 01/04/25 10:56 Prothrombin Time 10.3 sec (9.3-11.8) Prothrombin Time INR 0.97 (0.9-1.15) Activated Partial Thromboplast Time 79.0 SEC (24.5-34.5) POC Glucose 181 mg/dl (70-106) Sodium Level 139 mmol/L (136-145) Potassium Level 3.5 mmol/L (3.5-5.1) Chloride Level 106 mmol/L (98-107) Carbon Dioxide Level 25 mmol/L (20-31) Anion Gap 8 (5-15) Blood Urea Nitrogen 5 mg/dL (9-23) Creatinine 0.49 mg/dL (0.550-1.02) Glomerular Filtration Rate Calc 117 mL/min (>90) BUN/Creatinine Ratio 10.2 (10.0-20.0) Serum Glucose 179 mg/dL (74-106) Calcium Level 9.0 mg/dL (8.7-10.4) White Blood Count 7.8 10^3/uL (4.4-10.8) Red Blood Count 3.97 10^6/uL (4.0-5.20) Hemoglobin 6.9 g/dL (12.2-16.2) Hematocrit 23.5 % (36.0-46.0) Mean Corpuscular Volume 59.1 fL (80.0-100.0) Mean Corpuscular Hemoglobin 17.3 pg (28.0-32.0) Mean Corpuscular Hemoglobin Concent 29.2 g/dL (32.0-36.0) Red Cell Distribution Width 19.4 % (11.8-14.3) Platelet Count 298 10^3/uL (140-450) Mean Platelet Volume 8.0 fL (6.9-10.8) Neutrophils (%) (Auto) 74.6 % (37.0-80.0) Lymphocytes (%) (Auto) 15.7 % (10.0-50.0) Monocytes (%) (Auto) 4.9 % (0.0-12.0) Eosinophils (%) (Auto) 4.1 % (0.0-7.0) Basophils (%) (Auto) 0.7 % (0.0-2.0) Neutrophils # (Auto) 5.8 10 ^3/uL (1.6-8.6) Lymphocytes # (Auto) 1.2 10 ^3/uL (0.4-5.4) Monocytes # (Auto) 0.4 10 ^3/uL (0-1.3) Eosinophils # (Auto) 0.3 10 ^3/uL (0-0.8) Basophils # (Auto) 0.1 10 ^3/uL (0-0.2) Nucleated Red Blood Cells 0.0 % Beta HCG, Quantitative 0.2 mIU/mL (1.5-4.2) Test 01/02/25 07:22 01/01/25 10:25 Hemoglobin A1c 10.6 % A1C (<5.7) Total Bilirubin 0.4 mg/dL (0.2-1.0) Aspartate Amino Transferase (AST) 11 U/L (13-40) Alanine Aminotransferase (ALT) < 9 U/L (7-40) Alkaline Phosphatase 117 U/L (46-116) Total Protein 6.5 g/dL (5.7-8.2) Albumin 4.2 g/dL (3.2-4.8) Platelet Estimate Adequate Hypochromasia (manual) Marked Microcytosis Marked D-Dimer, Quantitative 1.47 mg/L FEU (0.0-0.49) Other Laboratory Tests 01/06/25 05:30 01/04/25 10:56 Brief Hx & Hospital Course: 49-year-old female came in complaining of pain and swelling over the right calf muscle found to have extensive DVT right lower extremity underwent thrombectomy by Radiology Dr. Otero placed on heparin drip transition to Eliquis patient also has uncontrolled diabetes A1c 10.6 patient was given diabetic teaching new onset diabetes prescription for metformin transmitted to the pharmacy. Patient also complained of pain in the left lower extremity DVT was negative in the left lower extremity CT left tib-fib was also negative for any acute pathology patient discharged home on Eliquis for DVT and metformin for diabetes. Consults/Reason for consult Radiology Dr. tOero Operations or Procedures Venous ultrasound right leg CT left leg Condition at Discharge: Fair Final Diagnosis/Problems List Extensive DVT right lower extremity status post thrombectomy by radiologist Dr. Otero, treated with a heparin drip, we will transition to Eliquis Right lower leg pain Uncontrolled diabetes A1c 10.6: Insulin sliding scale: New onset diabetes teaching Patient is still complaining of pain in the right lower extremity; we will continue heparin drip DVT ruled out in the left lower extremity Left calf tenderness and pain: CT left tib-fib due for any fracture dislocation for any acute pathology Discharge Disposition: Home Discharge Instruct/Medications Diet: Regular Activity: Light activity Follow Up/Referral: Follow up with your primary Dr in one week Start Eliquis from today You may need to be on Eliquis for at least six months Medications: Eliquis 10 mg p.o. b.i.d. seven days 5 mg p.o. b.i.d.180 Transmitted to [facility] 35 (Time taken for discharge summary 35 minutes) Discharge Statement: "Patient was advised to return to the ER or call 911 if any headaches, dizziness, shortness of breath, chest pain, abdominal pain, bleeding, fevers, or worsening of medical condition. Patient was counseled about treatment plan, medications, possible side effects, patientverbalized understanding. All questions were answered to the best of my ability. This discharge took greater then 30 minutes in planning, reviewing documentation, counseling the patient, and discussing with other team members." ASSESSMENT ASSESSMENT Hospital Course Improved Assessment Extensive DVT right lower extremity status post thrombectomy by radiologist Dr. Otero, treated with a heparin drip, we will transition to Eliquis Right lower leg pain Uncontrolled diabetes A1c 10.6: Insulin sliding scale: New onset diabetes teaching Patient is still complaining of pain in the right lower extremity; we will continue heparin drip DVT ruled out in the left lower extremity Left calf tenderness and pain: CT left tib-fib due for any fracture dislocation for any acute pathology Date of Service: Jan 06, 2025 Billing Provider: PRASAD WAY MD Common Visit Codes: [id number] DISCH DAY >30min PRASAD WAY MD Jan 06, 2025 10:29
[2025-01-06] MEDS ORDERED: HEPARIN DRIP/D5W 100UNITS/ML 250 ML IV SCH (11:00)
[2025-01-06 11:15] VITALS: BP 112/74; PULSE 93; RESP 19; TEMP 97.7; O2SAT 98
== END 2025-01-06 12:00 | disposition home or self-care (01) | DRG 169 ==
LOC: ER 09:33 → TELE 12:38 → TELE-CENTR 17:56
PROVIDERS: ADMIT Family Medicine; ATTEND Family Medicine
PROC: 06CC3ZZ Extirpation of Matter from Right Common Iliac Vein, Percutaneous Approach (ICD-10-PCS; principal; 2025-01-01)
PROC: 06CY3ZZ Extirpation of Matter from Lower Vein, Percutaneous Approach (ICD-10-PCS; 2025-01-01)
PROC: 06CM3ZZ Extirpation of Matter from Right Femoral Vein, Percutaneous Approach (ICD-10-PCS; 2025-01-01)
PROC: B51B1ZZ Fluoroscopy of Right Lower Extremity Veins using Low Osmolar Contrast (ICD-10-PCS; 2025-01-01)
PROC: 30233N1 Transfusion of Nonautologous Red Blood Cells into Peripheral Vein, Percutaneous Approach (ICD-10-PCS; 2025-01-04)
DX: I82.411 Acute embolism and thrombosis of right femoral vein (principal); N17.0 Acute kidney failure with tubular necrosis; I82.421 Acute embolism and thrombosis of right iliac vein; G70.00 Myasthenia gravis without (acute) exacerbation; D63.8 Anemia in other chronic diseases classified elsewhere; I82.431 Acute embolism and thrombosis of right popliteal vein; E11.65 Type 2 diabetes mellitus with hyperglycemia; Z88.0 Allergy status to penicillin; Z79.899 Other long term (current) drug therapy; Z79.4 Long term (current) use of insulin
CPT/HCPCS: 36415; 37187; 73700; 76856; 80048; 80053; 82962; 83036; 84702; 85025; 85379; 85610; 85730; 86850; 86900; 86901; 86920; 93005; 93971; 97163; 99152; C1769; C1894; G0378; J1815; J2250